=== PATIENT | female | born 1990 | race Hispanic/Latino ===

== ENCOUNTER 2020-07-06 13:43 | Outpatient (CLI) | payer OTHER ==
--- NOTE | 2020-07-06 15:53 | ULT ---
EXAM: OB ULTRASOUND COMPLETE. 07/06/20 HISTORY: Supervision of other high risk second trimester, size, dates and cervical length, anatomy. FINDINGS: A single viable intrauterine fetus is noted in cephalic presentation. Placenta is anterior. hea rt rate 155 beats per minute. Amniotic fluid index 15.7 within normal limits. Cervical length 4.1 cm. ANATOMY: The spine including cervical, thoracic and lumbar regions shows a very heterogeneous appearance with an overall abnormal appearance. A four chamber heart was not seen. 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 The remainder of the head, stomach, kidneys, cord insert, bladder, and three vessel cord were s een. The lips and nose region was not well seen. There appear to be some thickening of the soft tissu es of the posterior neck, evidence for some thickening of the nuchal tissue with possibly mild hypode nsity or translucency. BIOMETRY: BPD 5.0 cm - - 21 weeks, 1 day Head circumference 21 weeks, 4 days Abdominal circumference 17.6 cm - - 22 weeks, 4 days Femur length 2.5 cm - - 17 weeks, 3 days which is markedly low compared to the head and abdomen measurements. Gestational age average 20 weeks, 5 days. EDC: 11/18/20. Estimated weight: 348 grams. IMPRESSION: Single viable intrauterine fetus at approximately 20 weeks, 5 days. STEVE 11/18/20. Estimated weig ht of 348 grams. There are multiple potential anomalies including the spine, posterior fossa, foreshortened uppe r and lower extremity limbs and possibly nuchal thickening. A follow-up examination performed in a [facility] level type III institution is suggested for further assessment in this regard. Findings are discussed with Dr. Westfall at approximately 340 p.m. Code CR POS: OFF
== END 2020-07-06 13:44 | disposition home or self-care (01) ==
LOC: BICULT 13:43
PROVIDERS: ATTEND Family Medicine
DX: O09.892 Supervision of other high risk pregnancies, second trimester (principal); Z3A.20 20 weeks gestation of pregnancy
CPT/HCPCS: 76805

== ENCOUNTER 2020-10-04 15:29 | Observation (INO) | payer OTHER, SELFPAY ==
[2020-10-04 15:57] VITALS: BP 125/92; TEMP 98.2
[2020-10-04 16:01] VITALS: BMI 34.2
[2020-10-04] MEDS ORDERED: NIFEdipine 10 MG CAP PO PRN (16:44)
[2020-10-04] MEDS ORDERED: NIFEdipine 10 MG CAP PO SCH ×2 (16:45→23:59)
[2020-10-04] MEDS ORDERED: hydrALAZINE 20 MG/ML VIAL SLOW IVP PRN (16:46)
[2020-10-04 16:47] LABS: Amnisure Test RUPTURE DETECTED (No Rupture)
[2020-10-04 16:48] LABS: Amnisure Internal Control QC ACCEPTABLE (ACCEPTABLE)
[2020-10-04 17:01] LABS: #Lymphocytes 1.9 thou/uL (1.20-3.40); #Monocytes 0.5 thou/uL (0.11-0.59); #Neutrophils 9.8 thou/uL (1.40-6.50); %Basophils 0.1 % (0.0-1.0); %Eosinophils 0.1 % (0.0-10.0); %Lymphocytes 15.2 % (21.0-51.0); %Monocytes 4.3 % (0.0-10.0); %Neutrophils 80.3 % (42.0-75.0); Hemoglobin 10.7 g/dL (12.0-16.0); Mean Corpuscular HGB CONC 32.8 g/dL (32.0-36.0); Mean Corpuscular Hemoglobin 25.7 pg (27.0-31.0); Mean Corpuscular Volume 78.6 fL (78.0-98.0); Mean Platelet Volume 10.5 fL (7.4-10.4); Platelet Count 192 thou/uL (130-400); RBC Distribution Width 14.2 % (11.5-14.5); Red Blood Cell (RBC) Count 4.15 mill/uL (4.20-5.40); White Blood Cell (WBC) Count 12.2 thou/uL (4.8-10.8)
[2020-10-04] MEDS ORDERED: Betamet Acet/Betamet Na Ph 30 MG/5 ML VIAL ONE (17:07)
[2020-10-04] MEDS ORDERED: Betamet Acet/Betamet Na Ph 30 MG/5 ML VIAL IM SCH (17:15)
[2020-10-04] MEDS ORDERED: Azithromycin 250 MG TAB PO SCH (17:15)
--- NOTE | 2020-10-04 17:29 | ULT ---
ULTRASOUND OBSTETRICAL LIMITED: DATE: 10/04/2020 HISTORY: 30-year-old female in third trimester of with ruptured membranes. Evaluate cervical length and presentation. FINDINGS: number: arita lie: Footling breech Maternal cervix: 1.2 cm. Closed. Placenta: Anterior. No placenta previa. Amniotic fluid volume: FLORIAN = 25cm heart rate: 149 bpm anatomy not evaluated. IMPRESSION: 1) Live 3rd trimester intrauterine gestation. 2) footling breech lie. 3) cervical effacement with length of 1.2 cm. 4) polyhydramnios.
[2020-10-04] MEDS ORDERED: diphenhydrAMINE 50 MG/ML VIAL ONE (17:51)
--- NOTE | 2020-10-04 17:57 | PDOC.EVN ---
Event Note - Event Note Event Note: Pt reports contactions have drastically improved with the nifedipine loading dose of 20mg. She is reporting red itchy hands now. WE have given her ampicillin 2g, azithro 500mg, betamethazone, and the nifedipine. She has no other symptoms. Will given benadryl 50mg iv x1 and monitor for the next 30 min. Pt otherwise is ready for tx to [place]. Dr Sim is the accepting physician.
[2020-10-04] MEDS ORDERED: diphenhydrAMINE 50 MG/ML VIAL IVP SCH (18:00)
[2020-10-04] MEDS ORDERED: Ampicillin 2 GM in Sodium Chloride 0.9% 100 ML IVPB SCH (18:00)
[2020-10-04 18:15] LABS: SARS-CoV-2 NAA Rapid Test DETECTED (NotDetected)
--- NOTE | 2020-10-04 18:40 | PRG ---
DATE OF SERVICE: 10/04/2020 PRIMARY OB: Dr. Bañuelos in [facility] in [place], [place]. CHIEF COMPLAINT: Abdominal pains and discharge. HISTORY OF PRESENT ILLNESS: The patient is a 30-year-old, G4, P3 female, with an intrauterine at 33 weeks and 6 days, who presented to Labor and Delivery with complaints of abdominal pains that she reports about every 5 minutes, lasting seconds up to about 1 minute and a change in discharge this morning that she reports as mucusy and bloody. The patient reports she had intercourse last night around 9 o'clock. She denies fever, cough, headache, chest pain, shortness of breath, nausea, vomiting, diarrhea, constipation, hip problems, knee problems, or muscle weakness. She denies urinary urgency or frequency. She does report that this is complicated by anomaly, chondrodysplasia punctata, type 2 and had transferred care from Dr. Westfall to Dr. Bañuelos in [place] for this purpose with plan to deliver there in [place]. PAST MEDICAL HISTORY: Negative. PAST SURGICAL HISTORY: Three prior C-sections. ALLERGIES: NO KNOWN DRUG ALLERGIES. MEDICATIONS: vitamins. SOCIAL HISTORY: Denies drug, alcohol, or tobacco use. REVIEW OF SYSTEMS: Per HPI. PHYSICAL EXAMINATION: VITAL SIGNS: Initial blood pressure 125/92, heart rate of 111, respiratory rate of 18, saturating 100% on room air, and temperature 98.2. GENERAL: She appears to be in no acute distress. She is alert, oriented, cooperative, and pleasant to interact with. HEAD: Normocephalic and atraumatic. LUNGS: Clear to auscultation bilaterally. HEART: Has regular rate and rhythm. ABDOMEN: Gravid, soft, nontender. EXTREMITIES: Nontender, nonedematous. : Vulva is without masses, lesions, or erythema. Vagina is moist. She has clear pooling present vaginally. AmniSure test is collected. Cervix is digitally closed, but has a lot of palpable pressure through the vagina against it. DIAGNOSTIC DATA: heart tracing shows the fetus with a baseline in the 140s with moderate long-term variability, positive 15 x 15 accelerations, no decelerations. Contractions are about every 1 to 2 minutes, visible on the monitor irregular. AmniSure test is positive. Bedside ultrasound shows a fetus in footling breech presentation with FLORIAN of 25 and a cervical length of 1.2 cm. ASSESSMENT AND PLAN: The patient is a 30-year-old female with an intrauterine at 33 weeks and 6 days with evidence of premature rupture of membranes and contractions with out active labor. PPPROM occurred sometime in the last 12 hours probably. The patient has been started on ampicillin and azithromycin for latency. She has also been given a dose of betamethasone for lung maturity and has been loaded with Procardia SR 20 mg with instructions to give another 10 mg after 20 minutes should her contractions continue. Dr. Bañuelos is her primary OB in [place], who I have spoken with directly. I have been in contact with the [facility], receiving transfer center. Dr. Avalos, Dr. Bañuelos's partner is the accepting physician. At this point in time, I anticipate transfer by ambulance as the patient does not appear to be in any imminent delivery, however, that could change if we do not get her contractions to slow down with the Procardia. Fetus has a category I tracing and reactive NST. Update: 1899 The patient is reporting her contractions are returning. She has been loaded with procardia 30mg total and can run magnesium 2gm/hr for transport for others. Will change transfer to air. SARS testing is back and is positive. Job ID: [id number] [facility]
[2020-10-04] MEDS ORDERED: Calcium Gluc 4.6 MEQ/10 ML (100 MG/ML) SLOW IVP PRN (19:12)
[2020-10-04] MEDS ORDERED: Magnesium Sulfate 20 gm/500 ml 20 GM/500 ML BAG IVPB SCH (19:15)
== END 2020-10-04 20:15 | disposition short-term general hospital (02) ==
LOC: L&D/OP 15:29 → L&D 17:11
PROVIDERS: ADMIT Obstetrics & Gynecology; ATTEND Obstetrics & Gynecology
DX: O98.513 Other viral diseases complicating pregnancy, third trimester (principal); U07.1 COVID-19; O42.913 Preterm premature rupture of membranes, unspecified as to length of time between rupture and onset of labor, third trimester; O34.219 Maternal care for unspecified type scar from previous cesarean delivery; O35.8XX0 Maternal care for other (suspected) fetal abnormality and damage, not applicable or unspecified; O32.8XX0 Maternal care for other malpresentation of fetus, not applicable or unspecified; O40.3XX0 Polyhydramnios, third trimester, not applicable or unspecified; Z3A.33 33 weeks gestation of pregnancy
CPT/HCPCS: 59025; 76815; 84112; 85025; 99285; J0290; J0702; J3475; J3490; U0002